=== PATIENT | female | born 1980 | race Caucasian/White ===

== ENCOUNTER 2018-09-19 16:52 | Emergency (ER) | payer OTHER ==
[~2018-09-19] VITALS: Ht 154.9 cm; Wt 63.1 kg
[2018-09-19 16:58] VITALS: BP 128/88
[2018-09-19] MEDS ORDERED: DIPH,PERTUSS(ACELL),TET VAC/PF 0.5 ML IM-VACC ONE ×2 (17:00→17:42)
[2018-09-19] MEDS ORDERED: LIDOCAINE 1%-EPI 1:100K, 20ML SQ ONE (17:30)
[2018-09-19] MEDS ORDERED: DIPH,PERTUSS(ACELL),TET VAC/PF NC IM-VACC ONE (17:30)
[2018-09-19] MEDS ORDERED: PLEASE ENTER HEIGHT AND WEIGHT MC SCH (17:30)
[2018-09-19] MEDS ORDERED: LIDOCAINE 1%-EPI 1:100K, 30ML ONE (17:41)
--- NOTE | 2018-09-19 17:42 | NUR ---
PT MEDICATED PER MAR.
--- NOTE | 2018-09-19 17:45 | NUR ---
PT REPORT FROM [facility] RN. PT CARE ASSUMED
--- NOTE | 2018-09-19 17:47 | NUR ---
RUBI BILLY, AT BEDSIDE FOR LAC REPAIR.
--- NOTE | 2018-09-19 18:10 | NUR ---
FIGUEROA WRAP ON LT WRIST. PT AWAITING DC.
== END 2018-09-19 18:19 | disposition home or self-care (01) ==
LOC: ED 18:11
DX: S61.512A Laceration without foreign body of left wrist, initial encounter (principal); E03.9 Hypothyroidism, unspecified; W45.8XXA Other foreign body or object entering through skin, initial encounter; Y93.89 Activity, other specified; Y92.89 Other specified places as the place of occurrence of the external cause; Y99.8 Other external cause status
CPT/HCPCS: 12031; 12041; 90471; 90715; 99283; 99284